=== PATIENT | female | born 1960 | race Caucasian/White ===

== ENCOUNTER 2019-07-26 17:12 | Emergency (ER) | payer MEDICARE, MEDICAID, SELFPAY ==
[2019-07-26 17:17] VITALS: BP 165/88; PULSE 75; RESP 20; TEMP 37.8; O2SAT 93; BMI 23.3
--- NOTE | 2019-07-26 17:42 | ED_ITS ---
Entered by Aarti Jung, acting as scribe for Aramis Cuellar DO Jul 26, 2019 17:12 HPI - SOB/Dyspnea General: Chief Complaint: Shortness of Breath/Dyspnea Stated Complaint: FEVER, HEADACHE, SOB Time Seen by Provider: 07/26/19 17:37 History of Present Illness: HPI Narrative: 59yo female presents with shortness of breath, fever, and sore throat. She denies any chest pain, nausea, or vomiting. Denies pain radiating to the neck or arms no diaphoresis. MD elicited complaint: shortness of breath and cough Onset (ago): day(s) Timing: constant Associated symptoms: Deny abdominal pain, chest pain, fever(s), nausea or vomiting Review of Systems Const: Denies: fever ENMT: Reports: throat pain; Denies: ear pain, nasal discharge or nasal congestion Card: Denies: chest pain Resp: Reports: shortness of breath; Denies: productive cough GI: Denies: abdominal pain, nausea or vomiting : Denies: flank pain, difficulty urinating, painful urination, urinary frequency or urinary urgency Skin/Breast: Denies: rash or itching PFSH ED PFSH: Social History Smoking and tobacco status: never smoked Physical Exam Const: COMMON NORMALS: average body habitus, oriented x3 and alert GENERAL APPEARANCE: cooperative, comfortable, well kempt and well developed NUTRITIONAL APPEARANCE: obese ORIENTATION/CONSCIOUSNESS: Yes awake, Yes oriented to person and Yes oriented to place HENMT: COMMON NORMALS: normocephalic, head/scalp atraumatic, EAC's normal, TM's normal bilaterally, external nose normal, moist oral mucous membranes and oropharynx normal HEAD & SCALP: normocephalic and atraumatic NOSE: external nose normal EXTERNAL AUDITORY CANAL: EAC's normal TYMPANIC MEMBRANE: TM's normal bilaterally MOUTH: oral and palatal mucosa normal, lip normal and tongue normal THROAT: posterior oropharynx normal and tonsils normal Eye: COMMON NORMALS: PERRL, EOMs intact bilaterally, conjunctivae normal and no scleral icterus CONJUNCTIVA: Yes conjunctivae normal PUPIL: Yes PERRL Neck/C-Spine: COMMON NORMALS: full ROM, no lymphadenopathy, supple, no meningeal signs and thyroid normal THYROID: thyroid normal and asymmetrical Lymph: LYMPHATIC: no lymphadenopathy noted Resp: COMMON NORMALS: normal respiratory effort, no retractions, no use of accessory muscles and clear to auscultation bilaterally AUSCULTATION: clear to auscultation bilaterally Cardio: COMMON NORMALS: regular rate and regular rhythm RATE: regular rate RHYTHM: regular rhythm HEART SOUNDS: no murmurs GI: COMMON NORMALS: normal to inspection, nondistended, normoactive bowel sounds, soft to palpation and no hepatosplenomegaly PALPATION: Yes soft and Yes no hepatosplenomegaly : COMMON NORMALS: Yes no CVA tenderness BLADDER/KIDNEY EXAM: Yes no CVA tenderness Back/Pelvis: COMMON NORMALS: no CVA tenderness LUMBAR SPINE/LOWER BACK: Yes normal to inspection Extremity: COMMON NORMALS: no clubbing, cyanosis or edema, no calf tenderness and no pedal edema Neuro: COMMON NORMALS: oriented x3 SENSORIUM/ORIENTATION: Yes alert, Yes oriented to person and Yes oriented to place MENINGEAL SIGNS: Yes no meningeal signs Psych: APPEARANCE: Yes well kempt Skin: COMMON NORMALS: no rashes or lesions noted and skin turgor normal GENERAL SKIN EXAM: no rashes or lesions noted and turgor normal Course ED course: Patient symptoms and exam are consistent with influenza A she seems to be tolerating it well after labs are completed she is feeling much better she is well enough to be discharged discharged home I did cover her with doxycycline because of the cough and history of COPD, continue use of albuterol as needed Vital Signs: Vital signs: Vital Signs Temperature 100.0 F H 07/26/19 17:17 Pulse Rate 78 07/26/19 20:09 Respiratory Rate 16 07/26/19 20:09 Blood Pressure 153/78 07/26/19 20:09 Pulse Oximetry 97 07/26/19 20:09 MDM - SOB/Dyspnea Lab Data: Labs: Lab Results 07/26/19 07/26/19 07/26/19 Range/Units 17:45 18:17 18:17 WBC 5.9 (4.0-10.0) 10^3/ uL RBC 3.36 L (4.1-5.3) 10^6/u L Hgb 10.1 L (11.5-15.3) g/dL Hct 31.5 L (37.0-47.0) % MCV 93.8 (81-99) fL MCH 30.1 (28.0-34.0) pg MCHC 32.1 (30.0-36.0) g/dL RDW 13.4 (12.1-15.1) % Plt Count 221 (130-400) 10^3/c mm MPV 10.0 (7.4-10.4) fL Neut % (Auto) 79.9 % Lymph % (Auto) 10.3 % Bee % (Auto) 7.7 % Eos % (Auto) 0.3 % Baso % (Auto) 0.3 % Neut # (Auto) 4.7 (1.8-7.7) 10^3/u L Lymph # (Auto) 0.6 L (0.8-4.8) 10^3/u L Bee # (Auto) 0.5 (0.2-0.9) 10^3/u L Eos # (Auto) 0.0 (0.0-0.8) 10^3/u L Baso # (Auto) 0.0 (0.0-0.1) 10^3/u L Nucleated RBC % (a uto) 0 % Nucleated RBCs # 0.0 /100WBC Sodium 134 L (136-145) mmol/L Potassium 3.7 (3.5-5.1) mmol/L Chloride 100 (98-107) mmol/L Carbon Dioxide 24 (22-29) mmol/L Anion Gap 13.7 (5-19) BUN 10 (8-23) mg/dL Creatinine 0.9 (0.5-0.9) mg/dL GFR Calculation 63.7 L (90-130) mL/min Glucose 112 (65-115) mg/dL Calcium 9.2 (8.5-10.5) mg/dL Total Bilirubin 0.2 (0.15-1.2) mg/dL AST 17 (0-32) U/L ALT 7 (0-33) U/L Alkaline Phosphata se 85 (35-105) IU/L Total Protein 6.9 (6.6-8.7) g/dL Albumin 3.3 L (3.5-5.2) g/dL Globulin 3.6 (1.3-4.6) g/dL Influenza Type A A g Positive H (Negative) POC Influenza B Ag Negative (Negative) Discharge Plan Discharge Patient Disposition: Home, Self-Care Clinical Impression: Influenza A Condition: Stable Prescriptions: New doxycycline hyclate 100 mg capsule 100 mg PO BID 10 Days Qty: 20 RF: 0 No Action aspirin 81 mg Tablet,Delayed Release (Dr/Ec) 81 mg PO DAILY RF: 0 Discharge Orders: Discharge Order (Routine); Ordered 07/26/19 Ordered By: Aramis Cuellar Discharge Diet: Usual diet Discharge Activity: Increase activity as tolerated Discharge Date/Time: 07/26/19 20:16 Coding Level of Care Code ED Hi Lift Operator for Chg Fwd Exam Comprehensive The documentation recorded by the Erich ferris Bailey Leadawn, accurately reflects the service I personally performed and the decisions made by Polo bansal Curtis L, DO Jul 26, 2019 17:12
[2019-07-26 18:01] VITALS: RESP 18
--- NOTE | 2019-07-26 18:01 | XR_ITS ---
WS: [id number] XR chest 1V portable [id number] REASON FOR EXAM: dyspnea/cough FINDINGS: The left lung shows patchy interstitial infiltrate. A definite alveolar infiltrate is not s een. A Mediport is seen extending from the left side the tip is in the upper inferior vena cava. There is sternotomy changes. The right lung is completely clear. XR/XR chest 1V portable [id number] IMPRESSION: Interstitial changes throughout the left lung Mediport in good position. Sternotomy changes.
[2019-07-26] MEDS: sodium chloride 0.9% 1,000 ML 999 ML IV (18:17)
[2019-07-26 18:48] LABS: Basophils % 0.3 %; Eosinophils % 0.3 %; Hematocrit 31.5 % (37.0-47.0); Hemoglobin 10.1 g/dL (11.5-15.3); Lymphocytes # 0.6 10^3/uL (0.8-4.8); Lymphocytes % 10.3 %; Mean Corpuscular HGB Conc 32.1 g/dL (30.0-36.0); Mean Corpuscular Hemoglobin 30.1 pg (28.0-34.0); Mean Corpuscular Volume 93.8 fL (81-99); Monocytes # 0.5 10^3/uL (0.2-0.9); Monocytes % 7.7 %; Neutrophils # 4.7 10^3/uL (1.8-7.7); Neutrophils % 79.9 %; Nucleated Red Blood Cells % 0 %; Platelet Count 221 10^3/cmm (130-400); Red Blood Count 3.36 10^6/uL (4.1-5.3); Red Cell Distribution Width 13.4 % (12.1-15.1); White Blood Count 5.9 10^3/uL (4.0-10.0)
[2019-07-26 19:02] LABS: Alanine Aminotransferase 7 U/L (0-33); Albumin Level 3.3 g/dL (3.5-5.2); Alkaline Phosphatase 85 IU/L (35-105); Anion Gap 13.7 (5-19); Aspartate Amino Transferase 17 U/L (0-32); Blood Urea Nitrogen 10 mg/dL (8-23); Calcium 9.2 mg/dL (8.5-10.5); Carbon Dioxide 24 mmol/L (22-29); Chloride 100 mmol/L (98-107); Globulin 3.6 g/dL (1.3-4.6); Glomerular Filtration Rate 63.7 mL/min (90-130); Glucose 112 mg/dL (65-115); Potassium 3.7 mmol/L (3.5-5.1); Sodium 134 mmol/L (136-145); Total Bilirubin 0.2 mg/dL (0.15-1.2); Total Protein 6.9 g/dL (6.6-8.7)
[2019-07-26 19:09] LABS: Influenza A by IFA Positive (Negative); Influenza B by IFA Negative (Negative)
--- NOTE | 2019-07-26 19:10 | PC.NURSE ---
Report received from CASSANDRA Styles and care transferred to CASSANDRA Reyes
[2019-07-26 19:19] VITALS: PULSE 80
[2019-07-26] MEDS: sodium chlor 0.9% + KCl 20 mEq 20 MEQ/1,000 ML BAG 125 MEQ IV (19:36)
[2019-07-26 19:37] VITALS: BP 150/73; PULSE 71; RESP 16; O2SAT 95
[2019-07-26] MEDS: ketorolac 60 mg/2 mL INJ IM (20:07)
[2019-07-26 20:09] VITALS: BP 153/78; PULSE 78; RESP 16; O2SAT 97
== END 2019-07-26 20:16 | disposition home or self-care (01) ==
PROVIDERS: Emergency Provider Family Medicine
DX: J09.X2 Influenza due to identified novel influenza A virus with other respiratory manifestations (principal); E66.09 Other obesity due to excess calories; Z68.23 Body mass index [BMI] 23.0-23.9, adult
CPT/HCPCS: 71045; 80053; 85025; 87804; 96360; 96365; 96366; 96372; 99283; J1885; J7030

== ENCOUNTER 2019-09-13 17:22 | Observation (INO) | payer MEDICARE, MEDICAID, SELFPAY ==
[2019-09-13] VITALS (7 sets, daily range): BP systolic 142–178; BP diastolic 54–76; PULSE 63–71; RESP 15–22; O2SAT 94–98; BMI 21.9
--- NOTE | 2019-09-13 17:49 | ECG_ITS ---
Measurements Intervals [place] Rate: 61 P: 33 TX: 151 QRS: -53 QRSD: 90 T: 43 QT: 433 QTc: 439 SINUS RHYTHM PATTERN CONSISTENT WITH PULMONARY DISEASE POSSIBLE RIGHT VENTRICULAR CONDUCTION DELAY [RSR (QR) IN V1/V2] LEFT ANTERIOR FASCICULAR BLOCK [QRS AXIS <= -45, QR IN I, RS IN II] NONSPECIFIC ST & T-WAVE ABNORMALITY No previous ECG available for comparison Electronically Signed On 09-14-2019 10:01:32 CDT by Neftali Looney M.D. [id number]
--- NOTE | 2019-09-13 17:49 | XRR_ITS ---
PROCEDURE INFORMATION: Exam: XR Chest, 1 View Exam date and time: 09/13/2019 6:55 PM Age: 59 years old Clinical indication: Chest pain; Type not specified; Prior surgery; Surgery type: Cabg; Additional info: Chest pain, SOB TECHNIQUE: Imaging protocol: XR of the chest Views: 1 view. COMPARISON: CR XR chest 1V portable [id number] 07/26/2019 6:35 PM FINDINGS: Tubes, catheters and devices: There is a left subclavian port present with the catheter tip in the right atrium. Lungs: Poor inspiration. Decreased lung volumes. There is crowding of the bronchovascular structures in both infrahilar regions felt to be related to this. No focal peripheral lung consolidation, air bronchogram formation, or silhouette sign. Pleural space: No pleural effusion. No pneumothorax. Heart/Mediastinum: The cardiac silhouette is not enlarged. Prior CABG. The mediastinal contours are normal. Bones/joints: Prior median sternotomy. XR/XR chest 1V portable [id number] IMPRESSION: Poor inspiration. No definite acute abnormality when allowing for this.
--- NOTE | 2019-09-13 17:50 | ED_ITS ---
HPI - Chest Pain General: Chief Complaint: Chest Pain Stated Complaint: cp Time Seen by Provider: 09/13/19 17:40 Source: patient Mode of arrival: ambulatory Limitations: no limitations History of Present Illness: MD complaint: chest pain Pertinent past history: coronary artery disease and CABG Onset (ago): hour(s) Onset: during rest Pain radiation: left arm Severity: moderate Relieving factors: nothing Exacerbating factors: nothing Associated symptoms: Reports dyspnea; Deny abdominal pain, fever(s), nausea or vomiting Treatment prior to arrival: none Review of Systems General: Reports: 10 or more systems reviewed and unremarkable except in HPI and below Const: Denies: fever, chills or body aches Eyes: Denies: change in vision or blurry vision ENMT: Denies: throat pain, enlarged tonsils, painful swallowing, hoarseness, mouth pain or swelling of lips/tongue Card: Reports: chest pain and shortness of breath on exertion Resp: Reports: shortness of breath GI: Denies: abdominal pain, nausea or vomiting : Denies: flank pain, difficulty urinating, painful urination, urinary frequency, urinary urgency or urinary hesitancy Musc: Denies: neck pain, back pain or extremity swelling Skin/Breast: Denies: rash, itching or redness Neuro: Denies: headache, numbness in extremities or weakness in extremities Endo: Denies: excessive urination, excessive thirst or tired all the time PFSH ED PFSH: Medical History (Updated 09/13/19 @ 21:59 by Melody Cohen MD, [facility] [place] Coronary artery disease Depression Dyslipidemia GERD (gastroesophageal reflux disease) Influenza A Insomnia Migraine headache Stomach cancer Surgical History (Updated 09/13/19 @ 21:49 by Jeffrey Whaley MD) Hx of CABG Hx of cardiac cath Family History (Updated 09/13/19 @ 21:49 by Jeffrey Whaley MD) Denies family history of Diabetes Dementia Social History Smoking and tobacco status: never smoked Physical Exam Const: COMMON NORMALS: no apparent distress, average body habitus, oriented x3, no limitations, healthy appearing, alert and well nourished HENMT: COMMON NORMALS: normocephalic, head/scalp atraumatic and moist oral mucous membranes HEAD & SCALP: normocephalic and atraumatic Eye: COMMON NORMALS: PERRL, EOMs intact bilaterally, conjunctivae normal and no scleral icterus CONJUNCTIVA: Yes conjunctivae normal PUPIL: Yes PERRL Neck/C-Spine: COMMON NORMALS: full ROM, supple, no meningeal signs, no JVD and no carotid bruits Chest: COMMONS NORMALS: inspection of chest normal and palpation of chest normal Resp: COMMON NORMALS: normal respiratory effort, no retractions, no use of accessory muscles, clear to auscultation bilaterally and percussion normal AUSCULTATION: clear to auscultation bilaterally PERCUSSION: percussion normal Cardio: COMMON NORMALS: no JVD, regular rate, regular rhythm, S1 normal heart sound, S2 normal heart sound, no gallops, no clicks, no murmurs, no rub and peripheral pulses 2+ throughout RATE: regular rate RHYTHM: regular rhythm HEART SOUNDS: S1 normal and S2 normal PERIPHERAL PULSES: pulses 2+ throughout GI: COMMON NORMALS: normal to inspection, nondistended, normoactive bowel sounds, soft to palpation, non-tender, no hepatosplenomegaly, no masses and no bruits PALPATION: Yes soft and Yes no hepatosplenomegaly : COMMON NORMALS: Yes no CVA tenderness BLADDER/KIDNEY EXAM: Yes no CVA tenderness Back/Pelvis: COMMON NORMALS: no CVA tenderness Extremity: COMMON NORMALS: normal to inspection, full ROM, normal capillary refill, no calf tenderness and no pedal edema Neuro: COMMON NORMALS: oriented x3 SENSORIUM/ORIENTATION: Yes alert MENINGEAL SIGNS: Yes no meningeal signs Skin: COMMON NORMALS: no rashes or lesions noted, no wounds, skin turgor normal, no jaundice, no petechiae and no mottling GENERAL SKIN EXAM: no rashes or lesions noted and turgor normal Course Reevaluation(s): Reevaluation #1: Discussed her lab and imaging findings with her. Negative troponin x2. White cell count normal. CTA suggestive of a left-sided pneumonia. I discussed discharging her home on oral antibiotics but the patient did not feel safe enough going home and requested that she be admitted to the hospital for IV antibiotics and management. Will discuss with the hospitalist and see if she is appropriate for admission. Time: 21:30 Consultations: Consultation #1: Discussed with Dr. Whaley and he kindly accepted the patient to his service. Time: 21:45 Vital Signs: Vital signs: Vital Signs Pulse Rate 67 09/13/19 21:34 Respiratory Rate 18 09/13/19 21:34 Blood Pressure 156/63 09/13/19 21:34 Pulse Oximetry 94 09/13/19 21:34 MDM - Chest Pain MDM Narrative: Medical decision making narrative: 59-year-old female patient who presented to the emergency department with complaints of chest pain. On evaluation high-sensitivity troponins were not significant but a CTA done showed signs of a left-sided pneumonia. I attempted to discharge her home but she was not feeling safe enough to go home so she is being admitted for further management. Differential Diagnosis: Cardiac arrest differential diagnosis: Likely acute massive pulmonary embolism, acute respiratory failure and acute myocardial infarction Medical Records: Attestation: I reviewed the patient's medical records. Lab Data: Labs: Lab Results 09/13/19 09/13/19 09/13/19 Range/Units 18:40 18:40 18:40 WBC 6.8 (4.0-10.0) 10^3/ uL RBC 3.69 L (4.1-5.3) 10^6/u L Hgb 11.1 L (11.5-15.3) g/dL Hct 35.4 L (37.0-47.0) % MCV 95.9 (81-99) fL MCH 30.1 (28.0-34.0) pg MCHC 31.4 (30.0-36.0) g/dL RDW 13.6 (12.1-15.1) % Plt Count 142 (130-400) 10^3/c mm MPV 11.0 H (7.4-10.4) fL Neut % (Auto) 64.4 % Lymph % (Auto) 24.0 % Nuckolls % (Auto) 9.4 % Eos % (Auto) 1.6 % Baso % (Auto) 0.3 % Neut # (Auto) 4.4 (1.8-7.7) 10^3/u L Lymph # (Auto) 1.6 (0.8-4.8) 10^3/u L Nuckolls # (Auto) 0.6 (0.2-0.9) 10^3/u L Eos # (Auto) 0.1 (0.0-0.8) 10^3/u L Baso # (Auto) 0.0 (0.0-0.1) 10^3/u L Nucleated RBC % (a uto) 0 % Nucleated RBCs # 0.0 /100WBC D-Dimer (0-0.59) ug/mIFE U Sodium 137 (136-145) mmol/L Potassium 3.9 (3.5-5.1) mmol/L Chloride 105 (98-107) mmol/L Carbon Dioxide 23 (22-29) mmol/L Anion Gap 12.9 (5-19) BUN 11 (8-23) mg/dL Creatinine 0.8 (0.5-0.9) mg/dL GFR Calculation 72.9 L (90-130) mL/min Glucose 91 (65-115) mg/dL Calculated Osmolal ity 280 L (285-295) mOsm/k g Calcium 9.0 (8.5-10.5) mg/dL Total Bilirubin 0.2 (0.15-1.2) mg/dL AST 15 (0-32) U/L ALT 7 (0-33) U/L Alkaline Phosphata se 102 (35-105) IU/L Troponin T Baselin e 10 (0-10) ng/mL Troponin T 120 Min [place] (0-10) ng/mL Delta Troponin T (0-10) ABS# NT-Pro-B Natriuret Pep 336 H (0-125) pg/mL Total Protein 6.3 L (6.6-8.7) g/dL Albumin 3.4 L (3.5-5.2) g/dL Globulin 2.9 (1.3-4.6) g/dL 09/13/19 09/13/19 Range/Units 18:40 20:31 WBC (4.0-10.0) 10^3/ uL RBC (4.1-5.3) 10^6/u L Hgb (11.5-15.3) g/dL Hct (37.0-47.0) % MCV (81-99) fL MCH (28.0-34.0) pg MCHC (30.0-36.0) g/dL RDW (12.1-15.1) % Plt Count (130-400) 10^3/c mm MPV (7.4-10.4) fL Neut % (Auto) % Lymph % (Auto) % Nuckolls % (Auto) % Eos % (Auto) % Baso % (Auto) % Neut # (Auto) (1.8-7.7) 10^3/u L Lymph # (Auto) (0.8-4.8) 10^3/u L [place]olls # (Auto) (0.2-0.9) 10^3/u L Eos # (Auto) (0.0-0.8) 10^3/u L Baso # (Auto) (0.0-0.1) 10^3/u L Nucleated RBC % (a uto) % Nucleated RBCs # /100WBC D-Dimer 0.88 H (0-0.59) ug/mIFE U Sodium (136-145) mmol/L Potassium (3.5-5.1) mmol/L Chloride (98-107) mmol/L Carbon Dioxide (22-29) mmol/L Anion Gap (5-19) BUN (8-23) mg/dL Creatinine (0.5-0.9) mg/dL GFR Calculation (90-130) mL/min Glucose (65-115) mg/dL Calculated Osmolal ity (285-295) mOsm/k g Calcium (8.5-10.5) mg/dL Total Bilirubin (0.15-1.2) mg/dL AST (0-32) U/L ALT (0-33) U/L Alkaline Phosphata se (35-105) IU/L Troponin T Baselin e (0-10) ng/mL Troponin T 120 Min navajo 11.18 H (0-10) ng/mL Delta Troponin T 1.18 (0-10) ABS# NT-Pro-B Natriuret Pep (0-125) pg/mL Total Protein (6.6-8.7) g/dL Albumin (3.5-5.2) g/dL Globulin (1.3-4.6) g/dL Imaging Data^: CTA Chest: Radiologist's impression: [address] [address] [address] Scan Report Signed Patient: Evangelina Avalos #: [id number] : 8Acct#:[id number] Age/Sex: 59 / FADM Date: 09/13/19 Loc: [facility]/Bed: Attending Dr: Ordering Provider/Ordering MD: Melody Cohen MD, [facility] [place] Date of Service: 09/13/19 Procedure(s): CT angio chest PE protcl [id number] Accession Number(s): [id number] Report Number: [id number] PROCEDURE INFORMATION: Exam: CT Angiography Chest With Contrast Exam date and time: 09/13/2019 7:45 PM Age: 59 years old Clinical indication: Left-sided chest pain; Prior surgery; Surgery date: 6+ months; Surgery type: Stents, cabg; Additional info: Chest pain. Elevated d-dimer TECHNIQUE: Imaging protocol: Computed tomographic angiography of the chest with intravenous contrast. 3D rendering: MIP and/or 3D reconstructed images were created by the technologist. Total DLP: 576.72 mGy-cm Radiation optimization: All CT scans at this facility use at least one of these dose optimization techniques: automated exposure control; mA and/or kV adjustment per patient size (includes targeted exams where dose is matched to clinical indication); or iterative reconstruction. Contrast material: OMNI 350; Contrast volume: 86 ml; Contrast route: 20G; COMPARISON: CR XR chest 1V portable [id number] 09/13/2019 6:46 PM FINDINGS: Pulmonary arteries: Normal. No pulmonary emboli. Aorta: Unremarkable. No aortic aneurysm. No aortic dissection. Lungs: Mild atelectasis in the lower lobes and left upper lobe. Subtle patchy ground-glass opacities in the left upper and lower lobes. Pleural space: Unremarkable. No pneumothorax. No pleural effusion. Heart: Unremarkable. No cardiomegaly. No pericardial effusion. Gallbladder and bile ducts: Cholecystectomy. Lymph nodes: Unremarkable. No enlarged lymph nodes. Bones/joints: Median sternotomy changes. No compression fracture. Soft tissues: Unremarkable. CT/CT angio chest PE protcl [id number] IMPRESSION: 1. No evidence for pulmonary embolus. 2. Patchy ground-glass opacities in the left upper and lower lobes most likely represents pneumonia. Radiation Dose CTDIVOL = (mGy): DLP = 576.72 (mGy-cm) Dictated By:Manish Samson Signed By:Raquel Samson Date/Time:09/13/192058 DD/ 56 EKG Data^: EKG 1: Attestation: I personally reviewed and interpreted this EKG as follows: EKG interpretation date: 09/13/19 EKG interpretation time: 17:42 Prior EKG tracings: not available for review Interpretation: Normal sinus rhythm. Heart rate 61 bpm. Right ventricular conduction delay. Left anterior fascicular block. No ST change EKG 2: Attestation: I personally reviewed and interpreted this EKG as follows: EKG interpretation date: 09/13/19 EKG interpretation time: 20:10 Interpretation: Unchanged from earlier today Discharge Plan Discharge Patient Disposition: Admitted As Inpatient Clinical Impression: Community acquired pneumonia Qualifiers: Laterality: left Lung location: unspecified part of lung Qualified Code(s): J18.9 - Pneumonia, unspecified organism Chest pain Qualifiers: Chest pain type: other chest pain Qualified Code(s): R07.89 - Other chest pain Condition: Stable Coding Level of Care Code ED Principal Developer for g Fwd Exam Comprehensive
[2019-09-13 18:55] LABS: Basophils % 0.3 %; Eosinophils # 0.1 10^3/uL (0.0-0.8); Eosinophils % 1.6 %; Hematocrit 35.4 % (37.0-47.0); Hemoglobin 11.1 g/dL (11.5-15.3); Lymphocytes # 1.6 10^3/uL (0.8-4.8); Mean Corpuscular HGB Conc 31.4 g/dL (30.0-36.0); Mean Corpuscular Hemoglobin 30.1 pg (28.0-34.0); Mean Corpuscular Volume 95.9 fL (81-99); Monocytes # 0.6 10^3/uL (0.2-0.9); Monocytes % 9.4 %; Neutrophils # 4.4 10^3/uL (1.8-7.7); Neutrophils % 64.4 %; Nucleated Red Blood Cells % 0 %; Platelet Count 142 10^3/cmm (130-400); Red Blood Count 3.69 10^6/uL (4.1-5.3); Red Cell Distribution Width 13.6 % (12.1-15.1); White Blood Count 6.8 10^3/uL (4.0-10.0)
[2019-09-13] MEDS: aspirin 81 mg Chew Tablet 243 MG PO (18:56)
[2019-09-13] MEDS: nitroglycerin 0.4 mg sublingual Tablet SUBLINGUAL (18:57)
[2019-09-13 19:15] LABS: D Dimer 0.88 ug/mIFEU (0-0.59)
[2019-09-13 19:23] LABS: Troponin(5th) Baseline 10 ng/mL (0-10)
--- NOTE | 2019-09-13 19:26 | CTR_ITS ---
PROCEDURE INFORMATION: Exam: CT Angiography Chest With Contrast Exam date and time: 09/13/2019 7:45 PM Age: 59 years old Clinical indication: Left-sided chest pain; Prior surgery; Surgery date: 6+ months; Surgery type: Stents, cabg; Additional info: Chest pain. Elevated d-dimer TECHNIQUE: Imaging protocol: Computed tomographic angiography of the chest with intravenous contrast. 3D rendering: MIP and/or 3D reconstructed images were created by the technologist. Total DLP: 576.72 mGy-cm Radiation optimization: All CT scans at this facility use at least one of these dose optimization techniques: automated exposure control; mA and/or kV adjustment per patient size (includes targeted exams where dose is matched to clinical indication); or iterative reconstruction. Contrast material: OMNI 350; Contrast volume: 86 ml; Contrast route: 20G; COMPARISON: CR XR chest 1V portable [id number] 09/13/2019 6:46 PM FINDINGS: Pulmonary arteries: Normal. No pulmonary emboli. Aorta: Unremarkable. No aortic aneurysm. No aortic dissection. Lungs: Mild atelectasis in the lower lobes and left upper lobe. Subtle patchy ground-glass opacities in the left upper and lower lobes. Pleural space: Unremarkable. No pneumothorax. No pleural effusion. Heart: Unremarkable. No cardiomegaly. No pericardial effusion. Gallbladder and bile ducts: Cholecystectomy. Lymph nodes: Unremarkable. No enlarged lymph nodes. Bones/joints: Median sternotomy changes. No compression fracture. Soft tissues: Unremarkable. CT/CT angio chest PE protcl [id number] IMPRESSION: 1. No evidence for pulmonary embolus. 2. Patchy ground-glass opacities in the left upper and lower lobes most likely represents pneumonia. Radiation Dose CTDIVOL = (mGy): DLP = 576.72 (mGy-cm)
[2019-09-13 19:31] LABS: Alanine Aminotransferase 7 U/L (0-33); Albumin Level 3.4 g/dL (3.5-5.2); Alkaline Phosphatase 102 IU/L (35-105); Anion Gap 12.9 (5-19); Aspartate Amino Transferase 15 U/L (0-32); Blood Urea Nitrogen 11 mg/dL (8-23); Carbon Dioxide 23 mmol/L (22-29); Chloride 105 mmol/L (98-107); Globulin 2.9 g/dL (1.3-4.6); Glomerular Filtration Rate 72.9 mL/min (90-130); Glucose 91 mg/dL (65-115); NT Pro B Type Natriuretic Pept 336 pg/mL (0-125); Osmolality Calculated 280 mOsm/kg (285-295); Potassium 3.9 mmol/L (3.5-5.1); Sodium 137 mmol/L (136-145); Total Bilirubin 0.2 mg/dL (0.15-1.2); Total Protein 6.3 g/dL (6.6-8.7)
--- NOTE | 2019-09-13 19:49 | ECG_ITS ---
Measurements Intervals [place] Rate: 63 P: 17 DC: 155 QRS: -52 QRSD: 92 T: 58 QT: 443 QTc: 456 SINUS RHYTHM LEFT AXIS DEVIATION [QRS AXIS < -30] ANTEROSEPTAL MYOCARDIAL INFARCTION , PROBABLY OLD [40+ ms Q WAVE IN V1-V4] No previous ECG available for comparison Electronically Signed On 09-14-2019 10:02:24 CDT by Neftali Looney M.D. [email or web address]
[2019-09-13] MEDS: iohexol 350 mg/mL 100 mL Btl IV (20:45)
[2019-09-13 21:03] LABS: Troponin 5 2HR 11.18 ng/mL (0-10); Troponin 5 2HR Delta 1.18 ABS# (0-10)
[2019-09-13] MEDS: levofloxacin-dextrose 5 % 750 MG/150 ML PREMIX 100 MG IV (21:41)
--- NOTE | 2019-09-13 21:45 | PM.HP ---
Providers/Chief Complaint Chief Complaint: cp History of Present Illness Evangelina Avalos is a 59 year old female who has history of coronary disease, CABG 2005, gastric cancer status post gastrectomy 2012 at [place], GERD, bipolar disorder, came in after experiencing chest pain. Patient is stating that she is living with her cousin because cousin was taking care of 2 friends who came back from correction unfortunately they become positive with coronavirus and currently they are hospitalized, cousin has not experienced any fever shortness of breath or coughing, Ms. Avalos has been living with her cousin for quite some time now, today she started experiencing chest discomfort in the morning, she is describing it as stabbing pain which is radiating towards her arm and scapula, she is denying nausea, vomiting, fever. But she is endorsing shortness of breath on exertion, she is denying headache or myalgias at this point. She had influenza A in July 2018. When ED called me to admit the patient at that time there was no suspicion for covid, but after I interviewed her I asked for covid testing, I had used PPE, informed the nursing staff and infectious prevention Diagnostics in ER revealed normal hemodynamics, d-dimer was high, CTA did not reveal PE but showed groundglass opacities No leukopenia She was given aspirin high-dose and nitroglycerin that did not relieve her discomfort she still complaining of left-sided scapular pain, troponin not significantly high, EKG did not reveal ischemic or infarctive changes Review of Systems Const: Reports: chills, body aches and fatigue; Denies: fever Eyes: Denies: change in vision ENMT: Denies: throat pain or uvular edema Card: Reports: chest pain; Denies: palpitations, irregular heart rhythm or edema Resp: Reports: shortness of breath and pain on inspiration; Denies: productive cough or non-productive cough GI: Denies: abdominal pain : Denies: flank pain Musc: Denies: neck pain Skin/Breast: Denies: rash Neuro: Denies: headache Psych: Denies: anxiety Endo: Denies: excessive urination Luciano/Lymph: Denies: easy bruising All/Imm: Denies: hives Medications/Allergies Allergies Allergy/AdvReac Type Severity Reaction Status Date / Time No Known Allergies Allergy Verified 07/26/19 17:23 PFSH Acute PFSH: Medical History (Updated 09/13/19 @ 22:39 by Jeffrey Whaley MD) Coronary artery disease Depression Dyslipidemia GERD (gastroesophageal reflux disease) History of gastrectomy Influenza A Insomnia Migraine headache Stomach cancer Surgical History Hx of CABG Hx of cardiac cath Family History Denies family history of Diabetes Dementia Social History Smoking and tobacco status: never smoked Vitals/I&O/Wt Last Vital Signs Pulse 67 09/13/19 21:34 Resp 18 09/13/19 21:34 BP 156/63 09/13/19 21:34 Pulse Ox 94 09/13/19 21:34 Weight last 48 hrs Weight 59.874 kg Physical Exam Narrative: EXAM NARRATIVE: This is a pleasant female Currently no active respiratory distress Hemodynamically stable, saturating well on room air S1-S2 no tachycardia or heart failure Abdomen soft nontender nondistended Mild tenderness around paraspinal area of left scapular area Lungs are clear to auscultation without adventitious sounds Neurologically nonfocal exam Extremity does not show any sign of ischemia gangrene ulcer Appropriate mood and affect EOMI, PERRLA Data : 09/13/19 18:40 09/13/19 18:40 A&P Assessment and plan (1) Atypical chest pain: Status: Acute (2) Community acquired pneumonia: Status: Acute Qualifiers: Laterality: left Lung location: unspecified part of lung Qualified Code(s): J18.9 - Pneumonia, unspecified organism (3) Generalized weakness: Status: Acute Additional A&P Information Atypical chest pain Currently her pain is around the left scapular area, troponin not significantly high, EKG does not reveal ischemic or infarct changes, I would continue her aspirin, Plavix and high-dose statin I believe this is secondary to pulmonary pathology Community-acquired pneumonia Ceftriaxone and azithromycin, pneumonia severity index is low, admit to medical floor We will test covid 19 Isolation precautions with airborne and droplet precautions Influenza test ordered as well, she is suffering from influenza A in July 2018 Currently no leukocytosis, leukopenia, fever or signs of sepsis High d-dimer could be due to pneumonia, no PE identified on CTA Coronary artery disease status post CABG Continue home regimen Gastric cancer status post gastrectomy No acute exacerbation, Full code Cardiac diet Attestations Medical Necessity Statement*: Anticipating discharge in less than 48 hours after ruling out covid 19, currently treating for community-acquired pneumonia Time Spent in Patient Care: 50 Coding Level of Care Code Acute Machine Leather Trimmer for Chg Fwd Diagnoses Atypical chest pain R07.89 Community acquired pneumonia J18.9 Laterality: left Lung location: unspecified part of lung Generalized weakness R53.1
--- NOTE | 2019-09-13 22:00 | PC.NURSE ---
pt. given a lunch sack per Dr. sndyer
[2019-09-14] VITALS (8 sets, daily range): BP systolic 82–144; BP diastolic 42–60; PULSE 49–62; RESP 13–17; TEMP 36.4–36.8; O2SAT 93–98
[2019-09-14] MEDS: ketorolac 10 mg Tablet PO (01:30)
[2019-09-14] MEDS: trazodone 100 mg Tablet 200 MG PO (01:32)
[2019-09-14] MEDS: pantoprazole DR 40 mg Tablet 20 MG PO (01:32)
[2019-09-14 02:10] LABS: Influenza A by IFA Negative (Negative); Influenza B by IFA Negative (Negative)
[2019-09-14 03:14] LABS: Procalcitonin 0.05 ng/mL (0-0.5)
[2019-09-14 03:26] LABS: C Reactive Protein 8.2 mg/L (0.0-4.9); Ferritin 28 ng/mL (15-150); Lactate Dehydrogenase 127 U/L (135-214)
[2019-09-14 04:27] LABS: Basophils % 0.4 %; Eosinophils # 0.1 10^3/uL (0.0-0.8); Eosinophils % 1.8 %; Hematocrit 32.1 % (37.0-47.0); Hemoglobin 10.1 g/dL (11.5-15.3); Lymphocytes # 1.6 10^3/uL (0.8-4.8); Lymphocytes % 30.7 %; Mean Corpuscular HGB Conc 31.5 g/dL (30.0-36.0); Mean Corpuscular Hemoglobin 30.1 pg (28.0-34.0); Mean Corpuscular Volume 95.5 fL (81-99); Mean Platelet Volume 11.8 fL (7.4-10.4); Monocytes # 0.5 10^3/uL (0.2-0.9); Monocytes % 10.3 %; Neutrophils # 2.9 10^3/uL (1.8-7.7); Neutrophils % 56.4 %; Nucleated Red Blood Cells % 0 %; Platelet Count 130 10^3/cmm (130-400); Red Blood Count 3.36 10^6/uL (4.1-5.3); Red Cell Distribution Width 13.5 % (12.1-15.1); White Blood Count 5.1 10^3/uL (4.0-10.0)
[2019-09-14 04:43] LABS: Blood Urea Nitrogen 9 mg/dL (8-23); Calcium 8.8 mg/dL (8.5-10.5); Carbon Dioxide 24 mmol/L (22-29); Chloride 104 mmol/L (98-107); Glomerular Filtration Rate 63.7 mL/min (90-130); Glucose 95 mg/dL (65-115); Osmolality Calculated 278 mOsm/kg (285-295); Sodium 136 mmol/L (136-145)
[2019-09-14] MEDS: azithromycin 250 mg Tablet PO (08:38)
[2019-09-14] MEDS: aspirin 81 mg EC Tablet PO (08:38)
[2019-09-14] MEDS: fluoxetine 20 mg Capsule 40 MG PO (08:39)
[2019-09-14] MEDS: clopidogrel 75 mg Tablet PO (08:39)
[2019-09-14] MEDS: BuSPIRONE 10 mg Tablet PO ×2 (08:40→14:36)
[2019-09-14] MEDS: sodium chloride 0.9% 1,000 ML 75 ML IV (08:51)
[2019-09-14] MEDS: cefTRIAXone 1,000 MG in sodium chloride 0.9% (plus) 50 ML 100 MG IV (08:51)
[2019-09-14] MEDS: enoxaparin 40 mg/0.4 mL Syringe SUBCUT (08:52)
[2019-09-14 09:14] LABS: Estmated Average Glucose 108; Hemoglobin A1C 5.4 % (4.0-6.0)
[2019-09-14] MEDS: diclofenac 1% Topical Gel 100 gm 1 APPLIC TOPICAL ×2 (11:17→13:35)
--- NOTE | 2019-09-14 11:41 | PC.CHAP ---
Pastoral Care Encounter/Spiritual Assessment Type of Contact [] Declined diesel crane operator visit [] Patient/Family/Request visit [] Outpatient visit [] Follow-up visit [] Physician referral [] Code/Alert [] Routine visit [] Staff referral [] Actively dying [] Patient sleeping [] Family support [] [] Out of room [] Palliative care [] [] Receiving care in room [] Pre-surgical visit [] Trauma [] Long length of stay [] ICU visit [] Other: Relational/Emotional Strength [] Patient feels connected with others/family/visitors/staff [] Distress [] Loneliness/isolation [] Abandonment Spirituality of Patient [] Person of Ling [] Attends Jewish of their Ling [] Believes in Prayer [] Reads Bible or Church materials [] There are Spiritual issues to be addressed Account Assistant Interventions [] Prayer [] Active listening [] Non-anxious presence [] Spiritual/emotional support [] Crisis/trauma care [] Spiritual counseling [] Bereavement support [] Provided bereavement packet [] Provided Bible/devotional materials [] Provided toy/stuffed animal, coloring book to patient or family member [] Provided Communion [] Anointing/[place] [] Salvation [] Completed spiritual assessment [] Other: Impact on Illness or Injury [] Angry [] Fearful [] Anxious [] Often cries [] Exhaustion [] Unable to work [] Unable to attend orthodox [] Unable to walk/stand [] Unable to read [] Unable to drive [] Unable to eat/drink [] Unable to sleep [] Unable to be with family [] Patient intubated [] Other: Summary PRECAUTIONS, NO VISIT Time spent with patient
--- NOTE | 2019-09-14 14:59 | PM.DCS ---
Discharge Providers Date of Admission: 09/13/19 21:56 Date of Discharge: September 14, 2019 Attending Provider at Admission: Jeffrey Whaley MD Attending Provider at Discharge: Raghu Abdi MD Diagnoses at Discharge Discharge Diagnosis (1) Atypical chest pain: Status: Acute (2) Community acquired pneumonia: Status: Acute Qualifiers: Laterality: left Lung location: unspecified part of lung Qualified Code(s): J18.9 - Pneumonia, unspecified organism (3) Generalized weakness: Status: Acute (4) COVID-19 virus not detected: Status: Acute (5) Port-A-Cath in place: Status: Acute Reason for Visit Reason for Visit: Reason For Visit: cp Hospital Course Discharge Summary: Evangelina Avalos is a 59 year old female who has history of coronary disease, CABG 2005, gastric cancer status post gastrectomy 2012 at [place], GERD, bipolar disorder, came in after experiencing pain in the left scapular region going down to the left arm yesterday evening on September 12. Patient also reported that she lives with her cousin who was up in [place] around 20 days ago taking care of an elderly and and the cousin was notified around 6 days ago that the elderly couple tested positive for covid 19. Patient in ER was hemodynamically stable, saturating more than 94% on room air without any cough or flulike symptoms but her CTA chest done showed possible groundglass opacities so was admitted to the hospital for community-acquired pneumonia while COVID 19 test was sent. Patient's covid 19 came back negative, she maintained her oxygenation on room air and pain subsided with heat packs and diclofenac ointment. Patient's cardiac enzyme and EKG remained negative. Patient was counseled regarding general precautions in view of a possible COVID exposure. Patient was also found to have a right-sided Port-A-Cath which was placed in 2012 and has remained in place for poor IV access . Patient does not need any IV antibiotics, IV fluids, chemotherapy, radiation therapy anymore. Patient was explained and counseled in detail that the port should come out as it is a potentially high risk for infection. Patient is supposed to talk to her primary care practitioner for the same. She is been discharged in hemodynamically stable condition on oral antibiotics to finish a 5-day course. Physical Exam Narrative: EXAM NARRATIVE: General: No acute distress, AO x3 HEENT: PERRLA, pupils bilaterally equal and reactive Chest: Normal vesicular breath sounds, no added sounds, equal good air entry bilaterally, left thoracic Port-A-Cath present without any fluctuance or edema. CVS: S1-S2 regular, no murmurs, no tachycardia, no gallops, no rubs Abdomen: Soft, nontender, no organomegaly, bowel sounds present Neuro: No focal deficits, no facial deformity, AO x3, power 5/5 in all limbs Discharge Data Data Completed and Pending: Completed Studies During Hospitalization Category Date Time Status CT angio chest PE protcl [id number] Stat Cat Scan 09/13/19 19:26 Completed XR chest 1V maren ble [id number] Stat Exams 09/13/19 17:49 Completed Pending at discharge Category Date Time Status Lipid Profile w/V LDL Routine Lab 09/15/19 04:00 Ordered Labs from last 24 hours 09/14/19 09/14/19 09/14/19 03:44 03:44 03:44 WBC 5.1 RBC 3.36 L Hgb 10.1 L Hct 32.1 L MCV 95.5 MCH 30.1 MCHC 31.5 RDW 13.5 Plt Count 130 MPV 11.8 H Neut % (Auto) 56.4 Lymph % (Auto) 30.7 [place] % (Auto) 10.3 Eos % (Auto) 1.8 Baso % (Auto) 0.4 Neut # (Auto) 2.9 Lymph # (Auto) 1.6 [place] # (Auto) 0.5 Eos # (Auto) 0.1 Baso # (Auto) 0.0 Nucleated RBC % (a uto) 0 Nucleated RBCs # 0.0 D-Dimer Sodium 136 Potassium 4.0 Chloride 104 Carbon Dioxide 24 Anion Gap 12.0 BUN 9 Creatinine 0.9 GFR Calculation 63.7 L Glucose 95 Estimat Average Gl ucose 108 Hemoglobin A1c 5.4 Calculated Osmolal ity 278 L Calcium 8.8 Ferritin Total Bilirubin AST ALT Alkaline Phosphata se Lactate Dehydrogen ase Troponin T Baselin e Troponin T 120 Min [place] Troponin T C-Reactive Protein NT-Pro-B Natriuret Pep Total Protein Albumin Globulin Procalcitonin Influenza Type A A g Influenza Type B A g 09/14/19 09/14/19 09/13/19 01:35 00:36 20:31 WBC RBC Hgb Hct MCV MCH MCHC RDW Plt Count MPV Neut % (Auto) Lymph % (Auto) [place] % (Auto) Eos % (Auto) Baso % (Auto) Neut # (Auto) Lymph # (Auto) [place] # (Auto) Eos # (Auto) Baso # (Auto) Nucleated RBC % (a uto) Nucleated RBCs # D-Dimer Sodium Potassium Chloride Carbon Dioxide Anion Gap BUN Creatinine GFR Calculation Glucose Estimat Average Gl ucose Hemoglobin A1c Calculated Osmolal ity Calcium Ferritin 28 Total Bilirubin AST ALT Alkaline Phosphata se Lactate Dehydrogen ase 127 L Troponin T Baselin e Troponin T 120 Min [place] 11.18 H Delta Troponin T 1.18 C-Reactive Protein 8.2 H NT-Pro-B Natriuret Pep Total Protein Albumin Globulin Procalcitonin 0.05 Influenza Type A A g Negative Influenza Type B A g Negative 09/13/19 09/13/19 09/13/19 18:40 18:40 18:40 WBC RBC Hgb Hct MCV MCH MCHC RDW Plt Count MPV Neut % (Auto) Lymph % (Auto) [place] % (Auto) Eos % (Auto) Baso % (Auto) Neut # (Auto) Lymph # (Auto) [place] # (Auto) Eos # (Auto) Baso # (Auto) Nucleated RBC % (a uto) Nucleated RBCs # D-Dimer 0.88 H Sodium 137 Potassium 3.9 Chloride 105 Carbon Dioxide 23 Anion Gap 12.9 BUN 11 Creatinine 0.8 GFR Calculation 72.9 L Glucose 91 Estimat Average Gl ucose Hemoglobin A1c Calculated Osmolal ity 280 L Calcium 9.0 Ferritin Total Bilirubin 0.2 AST 15 ALT 7 Alkaline Phosphata se 102 Lactate Dehydrogen ase Troponin T Baselin e 10 Troponin T 120 Min [place] Troponin T C-Reactive Protein NT-Pro-B Natriuret Pep 336 H Total Protein 6.3 L Albumin 3.4 L Globulin 2.9 Procalcitonin Influenza Type A A g Influenza Type B A g 09/13/19 18:40 WBC 6.8 RBC 3.69 L Hgb 11.1 L Hct 35.4 L MCV 95.9 MCH 30.1 MCHC 31.4 RDW 13.6 Plt Count 142 MPV 11.0 H Neut % (Auto) 64.4 Lymph % (Auto) 24.0 [place] % (Auto) 9.4 Eos % (Auto) 1.6 Baso % (Auto) 0.3 Neut # (Auto) 4.4 Lymph # (Auto) 1.6 [place] # (Auto) 0.6 Eos # (Auto) 0.1 Baso # (Auto) 0.0 Nucleated RBC % (a uto) 0 Nucleated RBCs # 0.0 D-Dimer Sodium Potassium Chloride Carbon Dioxide Anion Gap BUN Creatinine GFR Calculation Glucose Estimat Average Gl ucose Hemoglobin A1c Calculated Osmolal ity Calcium Ferritin Total Bilirubin AST ALT Alkaline Phosphata se Lactate Dehydrogen ase Troponin T Baselin e Troponin T 120 Min [place] Troponin T C-Reactive Protein NT-Pro-B Natriuret Pep Total Protein Albumin Globulin Procalcitonin Influenza Type A A g Influenza Type B A g Vitals: Last Vital Signs Temp 98 F 09/14/19 12:00 Pulse 56 L 09/14/19 09:19 Resp 16 09/14/19 09:19 BP 115/54 09/14/19 08:00 Pulse Ox 95 09/14/19 09:19 Discharge Plan Discharge Patient Disposition: Home, Self-Care Condition: Stable Prescriptions: New atorvastatin 40 mg Tablet 20 mg PO BEDTIME Qty: 30 RF: 0 diclofenac sodium 1 % Gel 1 applic topical QID Qty: 30 RF: 0 levofloxacin 750 mg tablet 750 mg PO DAILY 5 Days Qty: 5 RF: 0 Continued aspirin 81 mg Tablet,Delayed Release (Dr/Ec) 81 mg PO DAILY RF: 0 aripiprazole 5 mg Tablet 5 mg PO BEDTIME RF: 0 buspirone 15 mg Tablet 15 mg PO TID RF: 0 fluoxetine 40 mg Capsule 40 mg PO BID RF: 0 mirtazapine 30 mg Tablet 30 mg PO DAILY RF: 0 No Action trazodone 100 mg Tablet 200 mg PO BEDTIME RF: 0 ondansetron HCl 8 mg Tablet 8 mg PO Q8H PRN (Reason: Nausea And Vomiting) RF: 0 clopidogrel 75 mg Tablet 75 mg PO DAILY RF: 0 Discharge Orders: Discharge Order (Routine); Ordered 09/14/19 Ordered By: Raghu Abdi Discharge Diet: Usual diet Discharge Activity: Resume usual activity Activity Restrictions/Additional Instructions: Port-A-Cath should be removed as soon as possible at least it is a potential risk of severe infection. Please finish antibiotic course of 5 days. Causing should be tested for covid as well. Follow-up with your primary care production within next 10 days. Use heat pad for pain along with diclofenac ointment twice daily. Discharge Attestations Time Spent in Discharge Care*: greater than 30 min Quality Metrics Clinical Quality Measures During this hospital stay, did patient experience: None Coding Level of Care Code Acute Ballast Cleaning Operator for [place] Fwd Diagnoses Atypical chest pain R07.89 Community acquired pneumonia J18.9 Laterality: left Lung location: unspecified part of lung Generalized weakness R53.1 COVID-19 virus not detected Port-A-Cath in place Z95.828
--- NOTE | 2019-09-14 16:28 | PC.NURSE ---
Home med reconciliation Discuss to pt regarding her home meds. Home meds source from pt and pharmacy. She would like her meds to be called to saw Abreu.
[2019-09-14 16:49] LABS: Coronavirus Lab Test PTC Negative
--- NOTE | 2019-09-14 17:00 | PC.NURSE ---
De-access Adina Cath Received tel order from to de-access needle cord adina cath. Aseptic technique provided. chlorhexidine swab around the area. Applied pressure to site. covered with band-aid. pt tolerated well. cath tip intact. needle thrown in sharps.
== END 2019-09-14 18:16 | disposition home or self-care (01) ==
LOC: ER 21:59 → CSU 22:45
PROVIDERS: Admitting Provider Internal Medicine; Emergency Provider Family Medicine; Visit Provider Student in an Organized Health Care Education/Training Program
DX: R07.89 Other chest pain (principal); J18.9 Pneumonia, unspecified organism; R53.1 Weakness; Z95.828 Presence of other vascular implants and grafts; I25.10 Atherosclerotic heart disease of native coronary artery without angina pectoris; Z95.1 Presence of aortocoronary bypass graft; Z85.00 Personal history of malignant neoplasm of unspecified digestive organ; Z90.49 Acquired absence of other specified parts of digestive tract; K21.9 Gastro-esophageal reflux disease without esophagitis; Z11.59 Encounter for screening for other viral diseases
CPT/HCPCS: 12345; 36415; 36591; 71045; 71275; 80048; 80053; 82728; 83036; 83615; 83880; 84145; 84484; 85025; 85378; 86140; 86403; 87449; 87635; 87641; 87804; 93005; 96365; 96372; 99283; 99285; G0378; J0696; J1650; J1956; J7030; Q0144; Q9967

== ENCOUNTER 2021-03-27 18:57 | Emergency (ER) | payer MEDICARE, MEDICAID, SELFPAY ==
[2021-03-27 19:06] VITALS: BP 179/100; PULSE 67; RESP 18; TEMP 36.7; O2SAT 99
[2021-03-27 19:14] VITALS: BP 186/99; PULSE 64; RESP 16; TEMP 36.6; O2SAT 96
--- NOTE | 2021-03-27 19:16 | W.ED.HA ---
Documented by User: CRISTINO Buenrostro 03/27/21 20:42 HPI - Headache General: Chief Complaint: Headache Stated Complaint: headache Time Seen by Provider: 03/27/21 19:10 History of Present Illness: HPI Narrative: She states she has a migraine. States she has photo and phonophobia. Patient says she has had many of these in the past. She took Imitrex today did not really help much. She has been nauseated. She denies any other symptoms. Patient also history of Martinez's palsy. Depression and anxiety. MD elicited complaint: migraine Pertinent past history: migraines and other (Stomach cancer) Onset (ago): hour(s) Onset description: on awakening Location: band-like Severity: moderate Quality & Timing: aching and similar to previous headaches Exacerbating factors: none Relieving factors: nothing Associated symptoms: Reports photophobia; Deny chest pain, fever(s), nausea, rash or vomiting Treatments prior to arrival: migraine medication and other Review of Systems Const: Denies: fever(s), chills or body aches Eyes: Denies: change in vision or blurry vision ENMT: Denies: throat pain or nasal congestion Card: Denies: chest pain or dyspnea on exertion Resp: Denies: dyspnea, productive cough or non-productive cough GI: Denies: abdominal pain, nausea or vomiting Musc: Denies: extremity pain Skin/Breast: Denies: rash Neuro: Reports: headache(s); Denies: weakness in extremities, sensory changes, lack of coordination or Slurred speech present Psych: Denies: anxiety or depression Luciano/Lymph: Denies: easy bruising PFSH ED PFSH: Medical History (Updated 03/27/21 @ 20:29 by CRISTINO Buenrostro) Coronary artery disease Depression Dyslipidemia GERD (gastroesophageal reflux disease) History of gastrectomy Influenza A Insomnia Migraine headache Port-A-Cath in place Stomach cancer Surgical History (Updated 09/14/19 @ 15:09 by Raghu Abdi MD) Hx of CABG Hx of cardiac cath S/P gastrectomy Family History Denies family history of Diabetes Dementia Social History Smoking and tobacco status: never smoked Physical Exam Const: COMMON NORMALS: no acute distress, average body habitus and patient oriented x3 HENMT: COMMON NORMALS: normocephalic HEAD & SCALP: normal to inspection and normocephalic FACE & SINUS: normal facial exam Eye: COMMON NORMALS: Equal, round and reactive pupils present, EOMs intact bilaterally and conjunctivae normal GENERAL EYE: appearance normal, both eyes and all related structures CONJUNCTIVA: Yes conjunctivae normal PUPIL: Yes Equal, round and reactive pupils present DIRECT OPHTHALMOSCOPY: Yes photophobia OTHER: Lid lag left side times many years Neck/C-Spine: COMMON NORMALS: no JVD Chest: COMMONS NORMALS: normal inspection of the chest Resp: COMMON NORMALS: normal respiratory effort and clear to auscultation bilaterally AUSCULTATION: clear to auscultation bilaterally Cardio: COMMON NORMALS: no JVD, regular rate and regular rhythm RATE: regular rate RHYTHM: regular rhythm GI: COMMON NORMALS: Normal to inspection, nondistended, normoactive bowel sounds present Extremity: COMMON NORMALS: normal to inspection and full ROM Neuro: COMMON NORMALS: patient oriented x3, moves all extremities, no focal motor deficits and no sensory deficits noted Course Vital Signs: Vital signs: Vital Signs Temperature 98.2 F 03/27/21 20:42 Pulse Rate 66 03/27/21 20:42 Respiratory Rate 18 03/27/21 20:42 Blood Pressure 152/70 03/27/21 20:42 Pulse Oximetry 100 03/27/21 20:42 MDM - Headache MDM Narrative: Medical decision making narrative: Patient responded well to medication. Headaches decreased significantly. Blood pressures come back down to normal. Patient does have pain in the left side back of her head that radiates into the left eye which is been consistent with her last 2 headaches. Headache consistent with tension type headache which probably triggered her migraine. Nausea is gone. Patient encouraged follow-up primary care provider to check blood pressures on a daily basis. Discharge Plan Discharge Patient Disposition: Home Clinical Impression: Tension headache Migraine Qualifiers: Migraine type: without aura Status migrainosus presence: with status migrainosus Intractability: intractable Qualified Code(s): G43.011 - Migraine without aura, intractable, with status migrainosus Condition: Stable Prescriptions: No Action aspirin 81 mg Tablet,Delayed Release (Dr/Ec) 81 mg PO DAILY RF: 0 aripiprazole 5 mg Tablet 5 mg PO BEDTIME RF: 0 buspirone 15 mg Tablet 15 mg PO TID RF: 0 fluoxetine 40 mg Capsule 40 mg PO BID RF: 0 mirtazapine 30 mg Tablet 30 mg PO DAILY RF: 0 trazodone 100 mg Tablet 200 mg PO BEDTIME RF: 0 atorvastatin 40 mg Tablet 20 mg PO BEDTIME Qty: 30 RF: 0 ondansetron HCl 8 mg Tablet 8 mg PO Q8H PRN (Reason: Nausea And Vomiting) RF: 0 diclofenac sodium 1 % Gel 1 applic topical QID Qty: 30 RF: 0 clopidogrel 75 mg Tablet 75 mg PO DAILY Qty: 30 RF: 0 Discharge Orders: Discharge ED (Routine); Ordered 03/27/21 Ordered By: Joey Mora Discharge Diet: Usual diet Discharge Activity: Resume usual activity Patient Instructions: Tension Headache (ED) Activity Restrictions/Additional Instructions: Can apply ice to back and neck. Take Tylenol and/or ibuprofen for discomfort. Continue present medication. Follow-up your family medical provider if problems persist or can return here. Monitor blood pressure daily for the next week or to write readings down and give to your primary care provider. Coding Level of Care Code ED Auto Fleet Manager for Chg Fwd Exam Comprehensive Documented by User: Harpal Mercer MD 04/01/21 19:15 HPI - Headache General: Chief Complaint: Headache Stated Complaint: headache Time Seen by Provider: 03/27/21 19:10 [facility] ED PFSH: Medical History (Updated 03/27/21 @ 20:29 by CRISTINO Buenrostro) Coronary artery disease Depression Dyslipidemia GERD (gastroesophageal reflux disease) History of gastrectomy Influenza A Insomnia Migraine headache Port-A-Cath in place Stomach cancer Surgical History (Updated 09/14/19 @ 15:09 by Raghu Abdi MD) Hx of CABG Hx of cardiac cath S/P gastrectomy Family History Denies family history of Diabetes Dementia Social History Smoking and tobacco status: never smoked Course Vital Signs: Vital signs: Vital Signs Temperature 98.2 F 03/27/21 20:42 Pulse Rate 66 03/27/21 20:42 Respiratory Rate 18 03/27/21 20:42 Blood Pressure 152/70 03/27/21 20:42 Pulse Oximetry 100 03/27/21 20:42 Discharge Plan Discharge Patient Disposition: Home Clinical Impression: Tension headache Migraine Qualifiers: Migraine type: without aura Status migrainosus presence: with status migrainosus Intractability: intractable Qualified Code(s): G43.011 - Migraine without aura, intractable, with status migrainosus Condition: Stable Prescriptions: No Action aspirin 81 mg Tablet,Delayed Release (Dr/Ec) 81 mg PO DAILY RF: 0 aripiprazole 5 mg Tablet 5 mg PO BEDTIME RF: 0 buspirone 15 mg Tablet 15 mg PO TID RF: 0 fluoxetine 40 mg Capsule 40 mg PO BID RF: 0 mirtazapine 30 mg Tablet 30 mg PO DAILY RF: 0 trazodone 100 mg Tablet 200 mg PO BEDTIME RF: 0 atorvastatin 40 mg Tablet 20 mg PO BEDTIME Qty: 30 RF: 0 ondansetron HCl 8 mg Tablet 8 mg PO Q8H PRN (Reason: Nausea And Vomiting) RF: 0 diclofenac sodium 1 % Gel 1 applic topical QID Qty: 30 RF: 0 clopidogrel 75 mg Tablet 75 mg PO DAILY Qty: 30 RF: 0 Discharge Orders: Discharge ED (Routine); Ordered 03/27/21 Ordered By: Joey Mora Discharge Diet: Usual diet Discharge Activity: Resume usual activity Patient Instructions: Tension Headache (ED) Activity Restrictions/Additional Instructions: Can apply ice to back and neck. Take Tylenol and/or ibuprofen for discomfort. Continue present medication. Follow-up your family medical provider if problems persist or can return here. Monitor blood pressure daily for the next week or to write readings down and give to your primary care provider. Coding Level of Care Code ED Auto Fleet Manager for [place] Fwd Exam Comprehensive
[2021-03-27] MEDS: diphenhydrAMINE 50 mg Capsule PO (19:22)
[2021-03-27] MEDS: ketorolac 60 mg/2 mL INJ IM (19:22)
[2021-03-27] MEDS: ondansetron 4 MG Tablet PO (19:23)
[2021-03-27 20:21] VITALS: BP 159/71; PULSE 63; RESP 16; O2SAT 100
[2021-03-27] MEDS: cyclobenzaprine 10 mg Tablet 5 MG PO (20:37)
[2021-03-27 20:42] VITALS: BP 152/70; PULSE 66; RESP 18; TEMP 36.8; O2SAT 100
== END 2021-03-27 20:44 | disposition home or self-care (01) ==
PROVIDERS: Emergency Provider Nurse Practitioner Family
DX: G43.011 Migraine without aura, intractable, with status migrainosus (principal); G44.209 Tension-type headache, unspecified, not intractable; Z79.82 Long term (current) use of aspirin; Z79.02 Long term (current) use of antithrombotics/antiplatelets; I25.10 Atherosclerotic heart disease of native coronary artery without angina pectoris; E78.5 Hyperlipidemia, unspecified; Z85.028 Personal history of other malignant neoplasm of stomach; Z95.1 Presence of aortocoronary bypass graft
CPT/HCPCS: 96372; 99283; J1885; Q0162; Q0163